=== PATIENT | female | born 1995 | race American Indian/Alaskan Native ===

== ENCOUNTER 2016-11-04 18:22 | Outpatient (CLI) | payer MEDICAID ==
[2016-11-04 19:24] VITALS: BP 113/66
[2016-11-04 21:59] LABS: Bacteria,Urine 2+ /HPF (Negative); Bilirubin,Urine NEG (Negative); Blood,Urine NEG (Negative); Ketones,Urine NEG (Negative); Leukocyte Esterase,Urine LG (Negative); Mucus,Urine FEW /HPF; Nitrite,Urine NEG (Negative); Protein,Urine <15 mg/dL mg/dL (Negative); Urobilinogen,Urine < 2.0 mg/dL (<2.0)
--- NOTE | 2016-11-05 08:23 | Ultrasound Report ---
ULTRASOUND OB LIMITED History: Rupture of membranes, vaginal leaking Technique: Transabdominal ultrasound with Doppler interrogation. Gestation: Du Amniotic Fluid: Normal PÉREZ = 13.4 cm Heart Rate: 130 BPM
== END 2016-11-04 22:00 | disposition home or self-care (01) ==
LOC: TRG 18:22 → EDBD 18:22 → TRG 18:24
PROVIDERS: ATTEND Obstetrics & Gynecology
DX: O42.92 Full-term premature rupture of membranes, unspecified as to length of time between rupture and onset of labor (principal); Z3A.33 33 weeks gestation of pregnancy
CPT/HCPCS: 76815; 81001; 96360